=== PATIENT | male | born 1960 ===

== ENCOUNTER → 2021-06-04 11:23 | Outpatient (CLI) | payer OTHER, SELFPAY ==
--- NOTE | ~2021-06-04 | XR_ITS ---
EXAMINATION: XR lumbar spine 2-3V EXAM DATE: 06/04/2021 12:15 INDICATION: Vertebrogenic low back pain radiating down right leg. TECHNIQUE: Lumber spine frontal, lateral, lateral L5-S1 projections for interpretation. Prior FINDINGS: Mild to moderate disc disease L-1-2, L3-4 and L5-S1. Small to moderate-sized thoracolumbar endplate osteophytes. Moderate lower lumbar facet arthropathy. The vertebral bodies are aligned in th e AP dimension. Mild loss of T12 and L1 vertebral body heights, mild chronic compressions. There are no acute fractures identified. IMPRESSION: Mild to moderate lumbar disc disease, moderate arthropathy. Reviewed, dictated and finalized at location G. [facility]
--- NOTE | ~2021-06-04 | US_ITS ---
EXAMINATION: US right upper quadrant DATE: 06/04/2021 11:58 INDICATION: Right upper quadrant pain TECHNIQUE: Multiple grayscale and Doppler ultrasound images of the abdomen were obtained. COMPARISON: None available FINDINGS: Bowel gas obscures visualization of the pancreas. The visualized portions of the pancreas a re unremarkable. The liver demonstrates increased echogenicity, heterogenous echotexture, and decreas ed through transmission. No surface nodularity. Normal hepatopetal flow in the main portal vein. The gallbladder is normal with no abnormal wall thickening, pericholecystic fluid or stones. The normal c ommon bile duct measures 4 mm. There was no sonographic Gautam sign. IMPRESSION: 1. Diffuse hepatic steatosis. Reviewed, dictated and finalized at location A. [facility]
== END ==
PROVIDERS: PCP Internal Medicine; Visit Provider Internal Medicine
DX: R10.9 Unspecified abdominal pain (principal); M54.51 Vertebrogenic low back pain; M51.36 Other intervertebral disc degeneration, lumbar region; K76.0 Fatty (change of) liver, not elsewhere classified
CPT/HCPCS: 72100; 76705